=== PATIENT | male | born 1985 | race Caucasian/White ===

== ENCOUNTER → 2025-04-12 09:52 | Outpatient (BNVA) | payer BC, MEDICAID, SELFPAY | PROVIDERS: PCP Nurse Practitioner; Visit Provider Nurse Practitioner | DX: T78.3XXA Angioneurotic edema, initial encounter (principal); X58.XXXA Exposure to other specified factors, initial encounter | CPT/HCPCS: 80053; 84443; 85025; 85651; 86140 ==